=== PATIENT | female | born 1965 | race Caucasian/White ===

== ENCOUNTER → 2016-06-06 | Outpatient (REF) | payer BC | LOC: M LAB REF 08:57 | PROVIDERS: ATTEND Surgery | DX: C44.319 Basal cell carcinoma of skin of other parts of face (principal) ==

== ENCOUNTER 2024-07-09 06:12 | Observation (INO) | payer SELFPAY ==
[2024-07-09] VITALS (8 sets, daily range): BP systolic 98–118; BP diastolic 53–75; TEMP 96.4–97.5; O2SAT 94–97
[~2024-07-09] VITALS: Ht 162.6 cm; Wt 73.8 kg
[~2024-07-09 06:12] MED LIST: BUSP1TAB PO; FAMO20TA5 PO; LORA-243 PO; MELA5CAP2 PO; VITA100093 PO
[2024-07-09] MEDS: LR 1,000 ML IV SCH ×2 (06:52→13:42)
[2024-07-09] MEDS ORDERED: LIDOCAINE 2% 100MG/5ML SDV (FOR ANES.) As Ordered ONE (07:17)
[2024-07-09] MEDS ORDERED: propofoL 200 MG/20 ML VIAL As Ordered ONE (07:17)
[2024-07-09] MEDS ORDERED: fentaNYL 250 MCG/5 ML INJECTION As Ordered ONE (07:17)
[2024-07-09] MEDS ORDERED: dexmedeTOMIDine (4MCG/ML)200MCG/50ML BTL (PRECEDEX) As Ordered ONE (07:17)
[2024-07-09] MEDS ORDERED: ROCURONIUM BROMIDE 50MG/5ML VIAL As Ordered ONE (07:17)
[2024-07-09] MEDS ORDERED: ONDANSETRON 4MG 2ML VIAL As Ordered ONE (07:17)
[2024-07-09] MEDS ORDERED: MIDAZOLAM INJ 2MG/2ML VIAL As Ordered ONE (07:18)
[2024-07-09] MEDS: HEPARIN SOD (PORCINE) 5000UNITS/ML 1ML VIAL/SYRINGE SQ ONE (08:04)
[2024-07-09] MEDS: ceFAZolin SOD 2 GM IV ONCE IV ONE (08:05)
[2024-07-09] MEDS ORDERED: LACRILUBE (AKWA TEARS) OPHTH OINT 3.5GM As Ordered ONE (08:09)
[2024-07-09] MEDS: LIDOCAINE 1% MDV 20ML VIAL As Ordered ONE (08:18)
[2024-07-09] MEDS: EPINEPHrine INJ 1 MG/ML 1ML AMP As Ordered ONE (08:18)
[2024-07-09] MEDS ORDERED: ACETAMINOPHEN 1000MG/100ML IV BAG As Ordered ONE (08:30)
[2024-07-09] MEDS ORDERED: SUGAMMADEX SODIUM 500 MG/5 ML VIAL (BRIDION) As Ordered ONE (08:34)
[2024-07-09] MEDS ORDERED: HYDROmorphone HCL 2MG/ML 1ML VIAL As Ordered ONE (08:34)
[2024-07-09] MEDS ORDERED: ePHEDrine SULFATE 25 MG/5 ML(5MG/ML) SYRINGE As Ordered ONE (08:52)
[2024-07-09] MEDS ORDERED: PHENYLephrine 500MCG 5ML (100MCG/ML) SYRINGE As Ordered ONE (08:52)
[2024-07-09] MEDS: GENTAMICIN SULF 80MG/2ML VIAL As Ordered ONE (10:00)
[2024-07-09] MEDS ORDERED: METOCLOPRAMIDE INJ 10MG/2ML VIAL As Ordered ONE (10:32)
[2024-07-09] MEDS: BUPivacaine LIPOSOME/PF 266MG 20ML VIAL (13.3MG/ML)(EXPAREL) As Ordered ONE (11:24)
[2024-07-09] MEDS ORDERED: MEPERIDINE 25 MG/ML 1ML VIAL IV PRN (11:30)
[2024-07-09] MEDS ORDERED: fentaNYL 100 MCG/2 ML INJECTION IV PRN (11:30)
[2024-07-09] MEDS ORDERED: HYDROMORPHONE HCL 0.5 MG/ 0.5 ML SYRINGE IV PRN (11:30)
[2024-07-09] MEDS ORDERED: oxyCODONE 5MG TAB PO PRN (11:30)
[2024-07-09] MEDS ORDERED: PERCOCET 5MG/325MG TAB PO PRN (11:55)
[2024-07-09] MEDS ORDERED: ONDANSETRON 4MG 2ML VIAL IV PRN (11:55)
[2024-07-09] MEDS: ONDANSETRON 4MG 2ML VIAL IV PRN (12:21)
[2024-07-09] MEDS: diphenhydrAMINE 50MG/ML VIAL IV PRN (12:49)
[2024-07-09] MEDS: ceFAZolin SODIUM 2 GM in DEXTROSE 5% (D5W) ADV/MINI-BAG 50 ML IV SCH (15:34)
[2024-07-09] MEDS ORDERED: FAMO40TA3 PO (15:37)
[2024-07-09] MEDS ORDERED: HOME MED LIST COMPLETE! XX SCH (15:40)
[2024-07-09] MEDS ORDERED: PILL CUTTER 1 EACH XX PRN (15:50)
[2024-07-09] MEDS: VITAMIN D 1,000 INTERNATIONAL UNITS TABLET PO SCH (17:06)
[2024-07-09] MEDS: FAMOTIDINE 20 MG TAB PO SCH (17:06)
[2024-07-09] MEDS: LORATADINE 10 MG TAB PO SCH (17:06)
[2024-07-09] MEDS: busPIRone 5 MG TAB PO SCH (20:46)
[2024-07-09] MEDS: traMADol 50 MG TAB PO PRN (20:51)
[2024-07-09] MEDS: ACETAMINOPHEN 325 MG TAB PO PRN (23:56)
[2024-07-10 03:07] VITALS: BP 121/61; TEMP 97.9; O2SAT 94
[2024-07-10 08:00] VITALS: BP 105/61; TEMP 97.9; O2SAT 94
[2024-07-10] MEDS ORDERED: TRAM50TA2 PO (09:28)
== END 2024-07-10 12:30 | disposition home or self-care (01) ==
LOC: M SDC 06:12 → M MS5PR 06:13
PROVIDERS: ADMIT Plastic Surgery Surgery of the Hand; ATTEND Plastic Surgery Surgery of the Hand
DX: M54.00 Panniculitis affecting regions of neck and back, site unspecified (principal); E88.1 Lipodystrophy, not elsewhere classified; M62.08 Separation of muscle (nontraumatic), other site; J30.1 Allergic rhinitis due to pollen; Z88.0 Allergy status to penicillin; Z79.899 Other long term (current) drug therapy
CPT/HCPCS: 15830; 15847; 88300; 96365; 96366; 96376; J0131; J0171; J0665; J0666; J0690; J1100; J1171; J1200; J1580; J2250; J2371; J2405; J2765; J3010